=== PATIENT | male | born 1940 | race Caucasian/White ===

== ENCOUNTER 2018-02-24 18:31 | Inpatient (IN) | payer BC ==
[~2018-02-24] VITALS: Ht 175.3 cm; Wt 78.5 kg
[~2018-02-24 18:31] MED LIST: LISINOPRIL10 MG PO; NORVASC10 MG PO
[2018-02-24 18:37] VITALS: BP 151/81
[2018-02-24] MEDS ORDERED: FLOMAX0.4 MG PO (18:48)
[2018-02-24] MEDS ORDERED: PROSCAR 5MG TABL5 MG PO (18:48)
[2018-02-24 18:49] LABS: ABSOLUTE BASOPHILS 0.1 thou/uL (0.0-0.2); ABSOLUTE EOSINOPHILS 0.1 thou/uL (0.0-0.7); ABSOLUTE LYMPHOCYTES 1.9 thou/uL (0.8-5.3); ABSOLUTE MONOCYTES 0.6 thou/uL (0.0-1.2); ABSOLUTE NEUTROPHILS 4.6 thou/uL (1.6-8.1); BASOPHILS 0.9 %; EOSINOPHILS 1.9 %; HEMATOCRIT 37.3 % (42.0-52.0); HEMOGLOBIN 12.9 gm/dL (14.0-18.0); LYMPHOCYTES 25.6 %; MCH 33.9 pg (26.0-34.0); MCHC 34.7 g/dL (28.0-37.0); MONOCYTES 8.3 %; MPV 9.3 fl. (7.2-11.1); NUCLEATED RBCS 0 /100WBC; PLATELET COUNT* 174 thou/uL (150-400); POLYS 63.3 %; RBC 3.81 mil/uL (4.50-6.00); RDW-CV 13.3 % (10.5-14.5); WBC 7.2 thou/uL (4.0-11.0)
[2018-02-24] MEDS ORDERED: LASIX 20 MG TAB20 MG PO (18:49)
[2018-02-24 18:59] LABS: ANION GAP 11 mmol/L (7-16); BUN 30 mg/dL (7-18); CALCIUM 8.7 mg/dL (8.5-10.1); CHLORIDE 103 mmol/L (98-107); CO2 28 mmol/L (21-32); CREATININE 1.5 mg/dL (0.6-1.3); GLUCOSE 108 mg/dL (70-99); POTASSIUM 3.5 mmol/L (3.5-5.1); SODIUM 142 mmol/L (136-145)
[2018-02-24 19:02] LABS: APTT 23.8 Seconds (25.0-31.3); INR 1.1; PROTIME 10.7 Seconds (9.20-11.50)
[2018-02-24 19:05] LABS: ALBUMIN 3.9 g/dL (3.4-5.0); ALKALINE PHOSPHATASE 63 U/L (46-116); LIPASE 65 U/L (73-393); SGOT 27 U/L (15-37); SGPT 25 U/L (30-65); TOTAL BILIRUBIN 0.7 mg/dL (<0.1-1.0); TOTAL PROTEIN 6.9 g/dL (6.4-8.2); TROPONIN-I LEVEL <0.06 ng/mL (<0.06)
[2018-02-24 22:04] VITALS: BP 127/72
[2018-02-24 22:15] VITALS: BP 130/64
[2018-02-24] MEDS ORDERED: PROTONIX 20 MG20 MG PO (23:12)
[2018-02-25] VITALS (13 sets, daily range): BP systolic 108–130; BP diastolic 47–64
--- NOTE | 2018-02-25 06:27 | NUR ---
ASSUMED PT CARE AT 2230, PT IS A&OX4, PT IS TRACING NSR/SB ON THE MONITOR, ON RA SATTING MID TO HIGH 90'S PT WAS ADMITTED WITH A SYNCOPAL EPISODE, HE HAD FALLED IN THE NEIGHBORS DRIVE WAY, SHE CALLED EMS. PT HAS A LEC TO THE RIGHT LIP RESULTING FROM THIS FALL, STITCHES PLACED IN ED, PICTURES TAKEN AND PLACED IN THE CHART. PT IS UP WITH ONE TO THE BR, BED IN LOW POSITION, CALL LIGHT IN REACH, BED ALARM ON, YELLOW ARM BAND AND SOCKS IN PLACE. HOURLY ROUNDING COMPLETED FOR PT SAFETY.
--- NOTE | 2018-02-25 09:58 | NUR ---
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
--- NOTE | 2018-02-25 14:57 | EKG ---
[place] [address] ELECTROCARDIOGRAM REPORT Name: JOYCE STEWARD Room: [address] ADM IN .R.#: [id number] Admission: 02/24/18 Attend Phys: Edison Nunez, Discharge: Date of : 38 Report #: [id number] THIS REPORT FOR: //name// [facility] ED Test Date: 2018-02-24 Test Time: 18:37:36 Pat Name: JOYCE STEWARD Department: Room: 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 NAILS : 1940 Requested By: Андрей Waite Order Number: [id number] MD: Ariel Hendricks Measurements Intervals [place] Rate: 70 P: 46 WI: 250 QRS: -21 QRSD: 112 T: 54 QT: 401 QTc: 433 Interpretive Statements Sinus rhythm Atrial premature complex Prolonged WI interval Incomplete left bundle branch block Compared to ECG 07/16/2015 13:37:25 Atrial premature complex(es) now present Left bundle-branch block now present Ventricular premature complex(es) no longer present Electronically Signed On 02-25-2018 14:57:43 CDT by Ariel Hendricks [email or web address] <ELECTRONICALLY SIGNED> By: Ariel Hendricks MD, FACC 02/25/18 1457 1837 183 Ariel Hendricks MD, FACC /EPI
--- NOTE | 2018-02-25 18:14 | NUR ---
PT CURRENTLY RESTING IN BED- GUM DIPPER IN PLACE ORDERED, TRACING SR WITH 1ST DEGREE- IV TO LEFT HAND INTACT AND SL- GOOD PO INTAKE NOTED WITH MEALS- ORTHOSTATS COMPLETE LAY 108/50 SIT 114/48 STAND 116/47- US OF CAROTIDS COMPLETED THIS SHIFT ORDERED, RESULTED SHOWING MILD BILATERAL PLAQUING OR HEMODYNAMICALLY SIGNIFICANT CAROTID STENOSIS- VQ SCAN COMPLETED SOWING NO SIGNIFICANT EVIDENCE FOR PE- LISINOPRIL NOTED TO BE D/C'D THIS SHIFT AND LOSARTAN 25 MG DAILY ADDED- PT DENIES ANY C/O PAIN/DISCOMFORT AT THIS TIME- CALL LIGHT AND PERSONAL BELONGINGS WITH IN REACH- PT MAKES NEEDS KNOWN- ALL NEEDS MET AT THIS TIME-WCTM
[2018-02-26] VITALS: BP 97/43
[2018-02-26 04:00] VITALS: BP 137/66; BP 139/52
--- NOTE | 2018-02-26 04:41 | NUR ---
Patient rested in bed no acute changes. Patient echo later today. No acute changes, patient did not show sings of distress. Patient demetrius cardia 50-40's while sleeping. Bed alarm in place, fall precautions in place, call light in reach, hourly rounding observed.
[2018-02-26 05:11] LABS: HEMATOCRIT 32.5 % (42.0-52.0); HEMOGLOBIN 11.5 gm/dL (14.0-18.0); MCH 34.1 pg (26.0-34.0); MCHC 35.3 g/dL (28.0-37.0); MCV 96.7 fL (80.0-100.0); MPV 9.6 fl. (7.2-11.1); RBC 3.36 mil/uL (4.50-6.00); WBC 4.3 thou/uL (4.0-11.0)
[2018-02-26 05:43] LABS: ALBUMIN 2.8 g/dL (3.4-5.0); CALCIUM 8.2 mg/dL (8.5-10.1); CREATININE 1.1 mg/dL (0.6-1.3); MAGNESIUM 1.9 mg/dL (1.8-2.4); POTASSIUM 3.8 mmol/L (3.5-5.1); TOTAL BILIRUBIN 0.8 mg/dL (<0.1-1.0); TOTAL PROTEIN 5.2 g/dL (6.4-8.2)
[2018-02-26 08:00] VITALS: BP 125/51; BP 135/60
--- NOTE | 2018-02-26 08:36 | CON ---
[address] [address] CONSULTATION Name: JOYCE STEWARD Room: [address] IN .R.#: [id number] Admission: 02/24/18 Attend Phys: Edison Nunez, Discharge: Date of : 38 Report #: [id number] THIS REPORT FOR: //name// CC: Mainor Nunez DATE OF SERVICE: 02/25/2018 CARDIOLOGY CONSULTATION INDICATION: Syncope. HISTORY OF PRESENT ILLNESS: The patient is a very pleasant 77-year-old gentleman, who still works for [employer] after 59 years. He was admitted to the hospital after having a syncopal episode. He was helping a neighbor pickup leaves. He was standing by the leave collection area and holding onto a car when he became dizzy and lightheaded. He passed out and fell to the ground. He regained consciousness within 1-2 minutes. There was no postictal state. He does report having symptoms of lightheadedness and dizziness, but does not recall any chest pain, shortness of breath or palpitations. He had a similar episode approximately 2 years ago, which was felt to be due to dehydration. Again, at that time, he was in the yard doing some work. He is without other cardiac complaint at this time. On telemetry monitoring, he has sinus rhythm and sinus arrhythmia without significant dysrhythmia. No significant pauses seen in rhythm. PAST MEDICAL HISTORY: 1. Hypertension. 2. GERD. 3. BPH. 4. Rosacea. 5. Precancerous skin lesions. 6. Presbyopia. 7. Previous left knee surgery. FAMILY HISTORY: Noncontributory. SOCIAL HISTORY: The patient does not smoke now nor has he ever. He is . His 3 years ago. He continues to work at [employer] after 59 years. REVIEW OF SYSTEMS: A 14-point review of systems is positive for dry cough. He reports an irregular heart rhythm. He reports occasional lower extremity edema for which he takes diuretics. He has borderline anemia remotely. He takes an iron replacement. He has rosacea for which he takes medication[place] [address] CONSULTATION Name: BINJOYCE Cheri Room: [address]#: [id number] Admission: 02/24/18 Attend Phys: Edison Nunez, Discharge: Date of : 38 Report #: [id number] reading glasses without acute visual loss. He has decreased hearing in the left ear. Otherwise, 14-point review of systems was unremarkable. PHYSICAL EXAMINATION: VITAL SIGNS: Blood pressure 111/52, pulse 56 and regular. GENERAL: This is a very pleasant elderly gentleman who is in no distress. Mood and affect appropriate. HEENT: Extraocular muscles intact. Mucous membranes are moist. NECK: Examination of the neck shows no jugular venous distention. There are no carotid bruits. CHEST: Reveals clear lung rojas. I do not appreciate wheezes or rales. CARDIOVASCULAR: Reveals a regular rhythm with normal S1 and S2. I do not appreciate gallop or murmur. ABDOMEN: Reveals normal bowel sounds. The abdomen is soft, nontender. EXTREMITIES: Shows no edema. Peripheral pulses are 2+ and easily palpable. SKIN: Warm and dry. LABORATORY DATA: A 12-lead EKG shows sinus rhythm with incomplete left bundle branch block. No acute ST or T-wave abnormalities noted. Labs are reviewed. Hemoglobin 12.9, platelet count 174,000, white blood cell count 7.2. Sodium 142, potassium 3.5, chloride 103, bicarb , BUN 30, creatinine 1.5, serum glucose 108. EGFR 45. Troponins less than 0.06 x 2. Chest x-ray shows no acute abnormalities. CT of the head shows no acute abnormalities. IMPRESSION AND RECOMMENDATIONS: 1. Syncope, etiology not entirely clear at this point in time. We will obtain echocardiogram. I have asked orthostatic blood pressures to be obtained. Further evaluation will be pending the results of these studies. We will consider whether or not tilt-table testing is indicated. Suspect dehydration may play some role as his creatinine is up somewhat and he had been doing yard work and takes diuretics. I have recommended he stay adequately hydrated. 2. Hypertension. Blood pressure adequately controlled on current regimen. 3. Benign prostatic hypertrophy, on medications as outlined above. I do not believe that these would contribute to orthostasis. 4. Gastroesophageal reflux disease. Continue current proton pump inhibitor. ALLERGIES: None documented. HOME MEDICATIONS: Amlodipine 10 mg daily, finasteride 5 mg daily, furosemide 20 mg daily, lisinopril 10 mg daily, Protonix 20 mg daily, Flomax 0.4 mg daily. <ELECTRONICALLY SIGNED> By: Ariel Hendricks MD, FACC 02/26/18 0836 1543 [id number] Hendricks MD, FACC /nt
--- NOTE | 2018-02-26 09:42 | NUR ---
CM SPOKE TO THE PATIENT TO DISCUSS HOME SITUATION, DISCHARGE PLANNING, AND TO INFORM OF THE ROLE OF CM. PATIENT ALERT, ORIENTED, AND INDEPENDENT WITH ADL'S. PATIENT RESIDES AT HOME ALONE. 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 PATIENT USES 0 DME. PATIIENT HAS NO HX OF HH OR SNF. PATIENT PLANS TO RETURN HOME AT D/C, AND DOES NOT ANTICIPATE ANY NEEDS. CM WILL REMAIN AVAILABLE TO ASSIST AND FOLLOW NEEDED.
[2018-02-26 11:30] VITALS: BP 135/60; BP 143/67
--- NOTE | 2018-02-26 12:44 | 2DMMODE ---
[place] [address] 2 D/M-MODE ECHOCARDIOGRAM Name: JOYCE STEWARD Room: [address] IN .R.#: [id number] Admission: 02/24/18 Attend Phys: Edison Landrum Discharge: Date of : 38 Date of Service: 02/26/18 1244 Report #: [id number] THIS REPORT FOR: //name// APPROVED REPORT Study performed: 02/26/2018 11:06:26 EXAM: Comprehensive 2D, Doppler, and color-flow Echocardiogram Patient Location: Bedside BSA: 1.94 HR: 57 bpm BP: 139/52 mmHg Other Information Study Quality: Good Indications Arrhythmia Syncope 2D Dimensions LVEF(%): 41.85 (>50%) IVSd: 14.08 (7-11mm) LVOT Diam: 24.57 (18-24mm) LVDd: 50.06 mm PWd: 8.84 (7-11mm) Ascending Ao: 30.30 (22-36mm) LVDs: 39.75 (25-40mm) Aortic Root: 26.06 mm Hinds's LVEF: 41.85 % Volumes Left Atrial Volume (Systole) LA ESV Index: 37.60 mL/m2 Aortic Valve AoV Peak Stanley.: 1.44 m/s AO Peak Gr.: 8.28 mmHg LVOT Max P.45 mmHg AO Mean Gr.: 4.27 mmHg LVOT Mean P.70 mmHg LVOT Max V: 0.93 m/s AO V2 VTI: 30.37 cm LVOT Mean V: 0.60 m/s HARSHAL (VTI): 2.92 cm2 LVOT V1 VTI: 18.69 cm Mitral Valve E/A Ratio: 0.83 MV Decel. Time: 258.99 [place] [address] 2 D/M-MODE ECHOCARDIOGRAM Name: JOYCE STEWARD Room: [address] IN .R.#: [id number] Admission: 02/24/18 Attend Phys: Edison Landrum Discharge: Date of : 38 Date of Service: 02/26/18 1244 Report #: [id number] MV E Max Stanley.: 0.60 m/s MV PHT: 75.11 ms MVA (PHT): 2.93 cm2 TDI E/Lateral E': 4.62 E/Medial E': 6.67 Medial E' Stanley.: 0.09 m/s Lateral E' Stanley.: 0.13 m/s Pulmonary Valve PV Peak Stanley.: 1.17 m/s PV Peak Gr.: 5.51 mmHg Tricuspid Valve RAP Estimate: 5.00 mmHg TR Peak Gr.: 28.57 mmHg RVSP: 33.57 mmHg PA Pressure: 33.57 mmHg Left Ventricle The left ventricle is normal size. Dysynergic septal motion consistent with bundle branch block. Sigmoid septum is present. The left ventricular systolic function is normal. LVEF is 50-55%. Grade I - abnormal relaxation pattern. Right Ventricle Right ventricle is mildly dilated. The right ventricular systolic function is normal. Atria Left atrium is mildly dilated. The right atrium size is normal. Aortic Valve Aortic valve leaflets are mildly thickened. Trace aortic regurgitation. There is no aortic valvular stenosis. Mitral Valve Mitral valve leaflets are mildly thickened. Mild mitral regurgitation. No evidence of mitral valve stenosis. Tricuspid Valve The tricuspid valve is normal in structure. Mild tricuspid regurgitation. The RVSP is 32 mmHg. Pulmonic Valve The pulmonary valve is normal in structure. Trace [place]mon[place] [address] 2 D/M-MODE ECHOCARDIOGRAM Name: STEWARDJOYCE Room: [address] IN [facility]#: [id number] Admission: 02/24/18 Attend Phys: Edison Landrum Discharge: Date of : 38 Date of Service: 02/26/18 1244 Report #: [id number] Great Vessels The aortic root is normal in size. IVC is normal in size and collapses with >50% inspiration Pericardium There is no pericardial effusion. <Conclusion> The left ventricle is normal size. Sigmoid septum is present. The left ventricular systolic function is normal. LVEF is 50-55%. Grade I - abnormal relaxation pattern. Dysynergic septal motion consistent with bundle branch block. Right ventricle is mildly dilated. Left atrium is mildly dilated. Aortic valve leaflets are mildly thickened. Trace aortic regurgitation. Mitral valve leaflets are mildly thickened. Mild mitral regurgitation. Mild tricuspid regurgitation. The RVSP is 32 mmHg. IVC is normal in size and collapses with >50% inspiration <ELECTRONICALLY SIGNED> By: Ariel Hendricks MD, FACC 02/26/18 1244 1244 1244 Ariel Hendricks MD, FACC /INF
[2018-02-26] MEDS ORDERED: ASPIR 8181 M1 PO (15:46)
[2018-02-26 15:59] VITALS: BP 135/60
[2018-02-26] MEDS ORDERED: COZAAR 25 MG TA25 M1 PO (16:16)
--- NOTE | 2018-02-26 16:35 | NUR ---
PT D/C'D TO HOME. DR JOHNSON RET CALL FOR CLIRIFICATION OF LISENIPRIL AND LOSARTAN. JEFF CAMPOS CALLED IN TO [facility]. ALL CONSULTS OK WITH D/C. EDUCATION GIVEN RE FOLLOW-UPS, MEDICATIONS, AND DRS ORDERS. ALL BELONGINGS PACKED UP AND LEFT WITH PT ACCOMPANIED BY FRIEND AND VOLUNTEER STAFF MEMBER.
== END 2018-02-26 16:35 | disposition home or self-care (01) | DRG 683 ==
LOC: M.ERS 18:31 → M.TBA-ER 20:35 → M.2W 20:35
PROVIDERS: Family Medicine; ADMIT Family Medicine
PROC: 0HQ1XZZ Repair Face Skin, External Approach (ICD-10-PCS; principal; 2018-02-24)
PROC: 0CQ1XZZ Repair Lower Lip, External Approach (ICD-10-PCS; principal; 2018-02-24)
DX: N17.9 Acute kidney failure, unspecified (principal); E44.0 Moderate protein-calorie malnutrition; I48.91 Unspecified atrial fibrillation; K21.9 Gastro-esophageal reflux disease without esophagitis; N18.3 Chronic kidney disease, stage 3 (moderate); I12.9 Hypertensive chronic kidney disease with stage 1 through stage 4 chronic kidney disease, or unspecified chronic kidney disease; N40.0 Benign prostatic hyperplasia without lower urinary tract symptoms; Z83.49 Family history of other endocrine, nutritional and metabolic diseases; Z79.899 Other long term (current) drug therapy; Z82.49 Family history of ischemic heart disease and other diseases of the circulatory system; Z79.82 Long term (current) use of aspirin; Z68.25 Body mass index [BMI] 25.0-25.9, adult

== ENCOUNTER → 2018-03-28 | Outpatient (CLI) | payer BC, MEDICARE ==
[2018-03-28] VITALS (27 sets, daily range): BP systolic 66–137; BP diastolic 41–77
[~2018-03-28] MED LIST changes: +ASPIR 8181 M1 PO; +COZAAR 25 MG TA25 M1 PO; +FLOMAX0.4 MG PO; +LASIX 20 MG TAB20 MG PO; +PROSCAR 5MG TABL5 MG PO; +PROTONIX 20 MG20 MG PO
--- NOTE | 2018-03-29 09:01 | PROC ---
[address] [address] PROCEDURE REPORT Name: JOYCE STEWARD Room: [facility]#: [id number] Admission: 03/28/18 Attend Phys: Ariel Hendricks MD Discharge: Date of : 38 Report #: [id number] THIS REPORT FOR: //name// CC: Mainor Hayward ____ , Ariel Hendricks MD DATE OF SERVICE: 03/28/2018 TITLE OF PROCEDURE: Head upright tilt table testing with sublingual nitroglycerin. INDICATIONS: Syncope. PROCEDURE TITLE: Head upright tilt table testing was performed by obtaining baseline blood pressure and heart rate in the supine position. The ECG was monitored throughout the study. The patient was then placed in the head upright position on the tilt table at 70 degrees for 20 minutes. The patient was then given nitroglycerin 0.4 mg sublingually. RESULTS: The patient's underlying rhythm was noted to be sinus bradycardia. The patient's baseline blood pressure was 126/64, the pulse 54. The patient had no complaints at the start of the study. The patient was then placed in the head upright position on the tilt table at 70 degrees. The patient had no complaints at this time and was noted to have a blood pressure 130/72 with pulse 54. He was noted to have occasional PVC. The patient remained in sinus bradycardia and there is no change in blood pressure while in the head upright position. After 20 minutes, the patient had a blood pressure 124/74, pulse 58. He was then given nitroglycerin 0.4 mg sublingually. At this time, the patient's blood pressure 118/70, pulse 56. He was in sinus bradycardia. The patient had no significant complaints at that time. However, 6 minutes after the nitroglycerin, the patient was noted to have a blood pressure 96/56, pulse 76 and was in sinus rhythm. The patient complained of feeling lightheaded. He was noted to have a blood pressure 72/50, the pulse 70. The patient then became unresponsive 15 minutes after the nitroglycerin. Pulse is 56 and blood pressure could not be obtained. He was then placed back into the supine position. The patient was noted to be diaphoretic but regained consciousness. He then had a blood pressure 112/64, the pulse of 50. Ten minutes after being placed back into the supine position the patient had a blood pressure 110/54, the pulse 54, sinus bradycardia. The patient denied any complaints at that time. IMPRESSION 1. Positive head upright tilt table test with nitroglycerin [place] [address] PROCEDURE REPORT Name: JOYCE STEWARD Room: [facility]#: [id number] Admission: 03/28/18 Attend Phys: Ariel Hendricks MD Discharge: Date of : 38 Report #: [id number] 2. The patient had a predominant vasodepressor response. There appeared to be no significant cardioinhibitory response noted. <ELECTRONICALLY SIGNED> By: Mainor Bocanegra MD, FACC 03/29/18 0901 1530 [id number] Bocanegra MD, FACC /nt
== END | disposition home or self-care (01) ==
LOC: M.CL 03-27 14:00
DX: R55 Syncope and collapse (principal); Z79.82 Long term (current) use of aspirin; Z79.899 Other long term (current) drug therapy